=== PATIENT | male | born 1935 | race Caucasian/White ===

== ENCOUNTER → 2016-05-14 | Day surgery (SDC) | payer BC ==
[2016-05-07 15:22] VITALS: Ht 182.9 cm; Wt 95.5 kg
[~2016-05-14] VITALS: Ht 182.9 cm; Wt 95.5 kg
[~2016-05-14] MED LIST: 500ML BSSPLUS 0.5ML EPI1:1000 IRRIG ONE; ACETAMINOPHEN 325 MG TAB PO PRN; ASPI81TA28 PO; ATOR-54 PO; ATROPINE SULFATE 0.1 MG/ML 5ML SYR IV PRN; ATROPINE SULFATE 1% OP OINT PER APPLICATION CHARGE ONE; BSS FLUSH ONE; BUPIVACAINE HCL 0.75% 10 ML AMP/VIAL ONE; CEFAZOLIN SOD 1 GM VIAL ONE; DEXAMETHASONE SOD INJ 4 MG/ML VIAL ONE; EpHEDrine SULFATE INJ 50 MG/ML AMP IV PRN; EpINEphrine INJ 1MG/ML AMP 1 MG/ML AMP ONE; FENTANYL CITRATE INJ 50 MCG/1 ML 2 ML VIAL IV PRN; FLM4 PO; GLC500 PO; GLIM2TAB2 PO; GLUC10007 PO; HYALURONIDASE HUMAN 150 UNIT/ML INJ ONE; INDOCYANINE GREEN 25 MG/10 ML ONE; LACTATED RINGER'S 1000ML 500 ML IV SCH; LIDOCAINE HCL 2% 2 ML VIAL (20MG/ML) ONE; LIDOCAINE MPF 4% INJ INJ ONE; LISI20TA3 PO; METO50TA16 PO; NEOMYCIN/POLYMYX/DEXAMETH OP OINT PER APP CHARGE ONE; OCUCOAT 1 ML SOLN IO ONE; OMEG10007 PO; ONDANSETRON INJ 2 MG/ML 2 ML VIAL IV PRN; PROPARACAINE 0.5% OP SOLN PER DROP CHARGE OPR SCH; PROPOFOL IV EMULSION 10 MG/ML 20 ML VIAL IV ONE; PYRI500T3 PO; SITA1TAB27 PO; TIMOLOL MALEATE 0.5% OP SOLN PER DROP CHARGE ONE; TRAM-10 PO; TRIAMCINOLONE ACETONIDE OPHTH 40 MG/ML VIAL STERILE IO ONE
[2016-05-14] MEDS: PHENYLEPHRINE HCL 2.5% OP SOLN PER DROP CHARGE OPR SCH ×2 (06:38→06:43)
[2016-05-14] MEDS: TROPICAMIDE 1% OP SOLN PER DROP CHARGE OPR SCH ×2 (06:39→06:44)
--- NOTE | 2016-05-14 07:03 | History & Physical Bridge - [place] ---
H&P Re-Evaluation Bridge Note: Pt has macular pucker right eye and is here for vitrectomy of the right eye. I have examined the patient, reviewed the History & Physical and in the interval since the performance of the History & Physical I have noted the following changes of clinical significance: No changes noted
--- NOTE | 2016-05-14 08:05 | [facility] Operative Report ---
Operative Report Date of Service May 14, 2016. Operative Report PREOPERATIVE DIAGNOSIS: Epiretinal membrane, right eye. ICD10: H35.371 POSTOPERATIVE DIAGNOSIS: same. PROCEDURE: 1. Pars plana vitrectomy, 23 gauge. 2. Membrane peeling of the internal limiting membrane and overlying epiretinal membrane. 3. Injection of Triescence 2mg. All to the right eye. CPT CODE: 46008 SURGEON: Jose Luis Maya D.O. COMPLICATIONS: None. ESTIMATED BLOOD LOSS: None. SPECIMENS: None. ANESTHESIA: Retrobulbar block and MAC. INDICATIONS FOR PROCEDURE: The patient has an epiretinal membrane that is visually significant. Vitrectomy surgery is indicated to decrease risk of vision loss and potentially improve vision. CONSENT: The risks, benefits and alternatives were discussed with the patient including but not limited to decreased visual acuity, failure to achieve desired results, loss of the eye, infection, pain, glaucoma, lens changes, retinal tears, retinal detachment, the need for more procedures, drooping of the eyelid, blindness, and double vision. The patient is aware of risks and consents to the surgery. Consent is signed and on the chart. OPERATION AND FINDINGS: The patient was brought to the operating room where the patient was identified by name, date, and medical record number. The surgical site was confirmed with the informed written consent. The patient was sedated by the anesthesiology team after which a 50:50 mixture of 4% lidocaine and 0.75% bupivacaine with hyaluronidase was administered in a standard retrobulbar fashion. A total of 4 ml was administered without difficulty. The patient was then prepped and draped in the usual sterile manner for retinal surgery. A wire lid speculum was placed and an Leonid 23-gauge trocar cannula system was employed. The inferior temporal trocar cannula was first placed in an angled fashion 3.75mm posterior to the surgical limbus and the infusion cannula was inserted into this cannula after which the intravitreal position was verified prior to turning the infusion on. Two more trocar cannulas were then inserted in an angled fashion, one in the superior temporal, and one in the superior nasal quadrant both 3.75mm posterior to the surgical limbus. A light pipe and vitrector were then introduced into the eye and the BIOM wide angle viewing system was brought into place. Standard core vitrectomy was performed the vitreous was insured to be totally detached from the posterior pole with the aid of the vitrector. Next 0.05ml of indocyanine green was placed over the macular surface to stain the internal limiting membrane. This was washed from the eye after 10 seconds. At this point a flat contact lens was placed on the surface of the eye and a flex scraper and ILM forceps were used to gently peel the internal limiting membrane and overlying epiretinal membrane off of the macular surface without difficulty. At this point scleral depression was performed for 360 degrees and no retinal tears or detachments were noted. The trocar cannulas were then removed and found to be water tight. The intraocular pressure was found to be within normal limits by palpation and subconjunctival injections of Kefzol and dexamethasone were administered inferiorly and superiorly. The wire lid speculum was removed. Maxitrol was applied to the surface of the eye. A light patch and shield were taped over the surface of the eye and the patient left the Operating Room in stable condition having tolerated the procedure well. DISPOSITION: The patient has an appointment the following morning in the Ophthalmology Clinic. The patient is to call immediately if there are any problems overnight. I attest to the content of the Intraoperative Record and any orders documented therein. Any exceptions are noted below.
--- NOTE | 2016-05-14 08:06 | Discharge Instructions-SurgCtr ---
Discharge Instructions Date of Service May 14, 2016. Visit Reason for Visit: Right Eye Epiretinal Membrane Discharge Discharge Diagnosis / Problem: same Discharge Goals Goal(s): Improve function Activity Recommendations Activity Limitations: per Instructions/Follow-up section Anesthesia . Post Anesthesia Instructions: If you have had General Anesthesia or IV Sedation: * Do not drive today. * Resume driving when surgeon permits. * Do not make important decisions or sign legal documents today. * Call surgeon for: 1. Temperature elevations greater than 101 degrees F. 2. Uncontrollable pain. 3. Excessive bleeding. 4. Persistent nausea and vomiting. 5. Medication intolerance (nausea, vomiting or rash). * For nausea and vomiting use only clear liquids such as: tea, soda, bouillon until nausea subsides, then gradually increase diet as tolerated. * If you have any concerns or questions, call your surgeon's office. If physician is unavailable and it is an emergency, call 911 or go to the nearest emergency room. . Instructions / Follow-Up Instructions / Follow-Up * May take Tylenol if needed for discomfort. * Do NOT remove eye shield. * NO straining, heavy lifting (>15 pounds) or bending below waist. * Avoid getting water or soap directly into operative eye. * Do NOT rub eye. If you experience increasing eye pain not relieved by medication, please contact us immediately at [phone]. If you are unable to reach someone at the above number, call [phone] and ask to speak with the EYE DOCTOR LIVESTOCK INSPECTOR. Inform them that you are a Dr. Maya patient who had recent surgery. Diet Recommendations Home Diet: resume previous diet Procedures Procedures Performed: Right Eye 23 Gauge Vitrectomy Pending Studies Studies pending at discharge: no Medical Emergencies . Who to Call and When: Medical Emergencies: If at any time you feel your situation is an emergency, please call 911 immediately. . Non-Emergent Contact Non-Emergency issues call your: Environmental Emergencies Planner . . "Provider Documentation" section prepared by Jose Luis Maya.
[2016-05-14 08:07] VITALS: TEMP 36.5
--- NOTE | 2016-05-14 08:17 | Anesthesiology Progress Note ---
Anesthesia Post Op Note Date & Time May 14, 2016 at 08:17 Vital Signs Pain Intensity: 0 Vital Signs Past 12 Hours Date Time Temp Pulse Resp B/P Pulse Ox O2 Delivery O2 Flow Rate FiO2 05/14/16 08:07 36.5 54 18 161/90 96 Room Air 05/14/16 06:32 36.8 54 16 146/96 95 Room Air Notes Mental Status: alert / awake / arousable, participated in evaluation Pt Amnestic to Procedure: Yes Nausea / Vomiting: adequately controlled Pain: adequately controlled Airway Patency, RR, SpO2: stable & adequate BP & HR: stable & adequate Hydration State: stable & adequate Anesthetic Complications: no major complications apparent
[2016-05-14 08:35] VITALS: BP 165/84; PULSE 52; O2SAT 95
== END | disposition home or self-care (01) ==
LOC: X.SURG 06:18
PROVIDERS: ATTEND Ophthalmology
DX: H35.371 Puckering of macula, right eye (principal); E11.9 Type 2 diabetes mellitus without complications; I10 Essential (primary) hypertension; I25.10 Atherosclerotic heart disease of native coronary artery without angina pectoris; M19.90 Unspecified osteoarthritis, unspecified site; E78.5 Hyperlipidemia, unspecified; G47.33 Obstructive sleep apnea (adult) (pediatric); Z90.89 Acquired absence of other organs; Z98.890 Other specified postprocedural states; Z79.82 Long term (current) use of aspirin; Z68.28 Body mass index [BMI] 28.0-28.9, adult

== ENCOUNTER → 2016-05-24 | Outpatient (CLI) | payer BC ==
[~2016-05-24] MED LIST changes: -500ML BSSPLUS 0.5ML EPI1:1000 IRRIG ONE; -ACETAMINOPHEN 325 MG TAB PO PRN; -ATROPINE SULFATE 0.1 MG/ML 5ML SYR IV PRN; -ATROPINE SULFATE 1% OP OINT PER APPLICATION CHARGE ONE; -BSS FLUSH ONE; -BUPIVACAINE HCL 0.75% 10 ML AMP/VIAL ONE; -CEFAZOLIN SOD 1 GM VIAL ONE; -DEXAMETHASONE SOD INJ 4 MG/ML VIAL ONE; -EpHEDrine SULFATE INJ 50 MG/ML AMP IV PRN; -EpINEphrine INJ 1MG/ML AMP 1 MG/ML AMP ONE; -FENTANYL CITRATE INJ 50 MCG/1 ML 2 ML VIAL IV PRN; -HYALURONIDASE HUMAN 150 UNIT/ML INJ ONE; -INDOCYANINE GREEN 25 MG/10 ML ONE; -LACTATED RINGER'S 1000ML 500 ML IV SCH; -LIDOCAINE HCL 2% 2 ML VIAL (20MG/ML) ONE; -LIDOCAINE MPF 4% INJ INJ ONE; -NEOMYCIN/POLYMYX/DEXAMETH OP OINT PER APP CHARGE ONE; -OCUCOAT 1 ML SOLN IO ONE; -ONDANSETRON INJ 2 MG/ML 2 ML VIAL IV PRN; -PROPARACAINE 0.5% OP SOLN PER DROP CHARGE OPR SCH; -PROPOFOL IV EMULSION 10 MG/ML 20 ML VIAL IV ONE; -TIMOLOL MALEATE 0.5% OP SOLN PER DROP CHARGE ONE; -TRIAMCINOLONE ACETONIDE OPHTH 40 MG/ML VIAL STERILE IO ONE
[2016-05-24 10:56] LABS: ALT/SGPT 30 U/L (12-78); BLOOD UREA NITROGEN 20 mg/dl (7-18); BUN/CREATININE RATIO 21.5 (10-20); CALCIUM 9.1 mg/dl (8.5-10.1); CARBON DIOXIDE 29 mmol/L (21-32); CHLORIDE 106 mmol/L (98-107); CREATININE 0.92 mg/dl (0.60-1.40); GLUCOSE 142 mg/dl (70-99); POTASSIUM 4.3 mmol/L (3.5-5.1); SODIUM 142 mmol/L (136-145)
[2016-05-24 10:58] LABS: ALB/GLOB RATIO 1.1 (0.9-2); ALKALINE PHOSPHATASE 118 U/L (45-117); AST/SGOT 18 U/L (15-37)
[2016-05-24 11:53] LABS: ESTIMATED AVERAGE GLUCOSE 154 mg/dl; HA1C FLAG Normal (Normal)
== END | disposition home or self-care (01) ==
LOC: C.LABBC 07:40
PROVIDERS: ATTEND Physician Assistant
DX: E11.9 Type 2 diabetes mellitus without complications (principal)

== ENCOUNTER → 2017-04-01 | Outpatient (CLI) | payer BC | END | disposition home or self-care (01) | LOC: C.LABSPEC 16:59 | PROVIDERS: ATTEND Urology | DX: Z00.00 Encounter for general adult medical examination without abnormal findings (principal); L57.0 Actinic keratosis; E11.9 Type 2 diabetes mellitus without complications; E78.5 Hyperlipidemia, unspecified; I25.10 Atherosclerotic heart disease of native coronary artery without angina pectoris; N35.9 Urethral stricture, unspecified; N40.0 Benign prostatic hyperplasia without lower urinary tract symptoms; H35.379 Puckering of macula, unspecified eye; N39.0 Urinary tract infection, site not specified ==

== ENCOUNTER → 2017-04-08 | Outpatient (CLI) | payer BC ==
[~2017-04-08] MED LIST changes: +GLC/500 PO; +PYRI100T4 PO
--- NOTE | 2017-04-08 16:09 | DIAGNOSTIC IMAGING REPORT ---
CHEST 2 VIEWS ROUTINE CLINICAL HISTORY: URETHRAL STRICTURE preoperative evaluation COMPARISON STUDY: 12/11/2012 FINDINGS: Mild stable cardiomegaly. Mild atelectatic change right base. Lungs otherwise appear clear. Prior left shoulder arthroplasty. IMPRESSION: Mild right basilar atelectasis. Mild stable cardiomegaly. The above report was generated using voice recognition software. It may contain grammatical, syntax or spelling errors. Electronically signed by: Surendra Bryant M.D. 04/08/2017 4:08 PM Dictated Date/Time: 04/08/2017 4:06 PM
[2017-04-08 16:41] LABS: BASO % 0.5 %; BASO ABS # 0.04 K/uL (0-0.2); EOS % 1.2 %; HEMATOCRIT 42.4 % (42-52); HEMOGLOBIN 14.5 g/dL (14.0-18.0); IG# 0.01 K/uL (0.00-0.02); LYMPH % 37.5 %; LYMPH ABS # 3.21 K/uL (1.2-3.4); MEAN CELL VOLUME 93.4 fL (80-100); MEAN CORPUSCULAR HEMOGLOBIN 31.9 pg (25-34); MEAN CORPUSCULAR HGB CONC 34.2 g/dl (32-36); MEAN PLATELET VOLUME 9.6 fL (7.4-10.4); MONO % 7.2 %; MONO ABS # 0.62 K/uL (0.11-0.59); NEUT % 53.5 %; NEUT ABS # 4.59 K/uL (1.4-6.5); PLATELET COUNT 207 K/uL (130-400); RED CELL DISTRIBUTION WIDTH CV 13.4 % (11.5-14.5); RED CELL DISTRIBUTION WIDTH SD 45.7 fL (36.4-46.3); WHITE BLOOD COUNT 8.57 K/uL (4.8-10.8)
[2017-04-08 17:16] LABS: BLOOD UREA NITROGEN 19 mg/dl (7-18); CALCIUM 9.1 mg/dl (8.5-10.1); CARBON DIOXIDE 27 mmol/L (21-32); CREATININE 0.83 mg/dl (0.60-1.40); GLUCOSE 180 mg/dl (70-99); POTASSIUM 3.9 mmol/L (3.5-5.1); SODIUM 139 mmol/L (136-145)
== END | disposition home or self-care (01) ==
LOC: C.RAD 15:26
PROVIDERS: ATTEND Urology
DX: N35.9 Urethral stricture, unspecified (principal)

== ENCOUNTER 2017-04-15 06:32 | Day surgery (SDC) | payer BC ==
[2017-04-11 08:39] VITALS: BMI 28.0
[~2017-04-15] VITALS: Ht 182.9 cm; Wt 95.4 kg
[~2017-04-15 06:32] MED LIST changes: +CIPROFLOXACIN / D5W 400 MG IV SCH; -GLC500 PO; +LACTATED RINGER'S 1000ML 1,000 ML IV SCH; -PYRI500T3 PO
[2017-04-15 06:47] VITALS: BP 149/84; PULSE 52; TEMP 36.6; O2SAT 95; Ht 182.9 cm; Wt 95.4 kg
--- NOTE | 2017-04-15 08:11 | History & Physical Bridge Note ---
H&P Re-Evaluation Bridge Note: I have examined the patient, reviewed the History & Physical and in the interval since the performance of the History & Physical I have noted the following changes of clinical significance: No changes noted
[2017-04-15] MEDS ORDERED: ONDANSETRON INJ 2 MG/ML 2 ML VIAL IV PRN ×2 (08:15→09:00)
[2017-04-15] MEDS ORDERED: EpHEDrine SULFATE INJ 50 MG/ML AMP IV PRN ×2 (08:15→09:00)
[2017-04-15] MEDS ORDERED: FENTANYL CITRATE INJ 50 MCG/1 ML 2 ML VIAL IV PRN ×2 (08:15→09:00)
[2017-04-15] MEDS ORDERED: ATROPINE SULFATE 0.1 MG/ML 5ML SYR IV PRN ×2 (08:15→09:00)
[2017-04-15] MEDS ORDERED: PROMETHAZINE HCL INJ 6.25 MG in SODIUM CHLORIDE 0.9% 50ML 50 ML IV PRN ×2 (08:15→09:00)
[2017-04-15] MEDS ORDERED: MIDAZOLAM HCL 1 MG/ML 2ML VIAL ONE (08:28)
[2017-04-15] MEDS ORDERED: LIDOCAINE HCL 2% 2 ML VIAL (20MG/ML) ONE (08:28)
[2017-04-15] MEDS ORDERED: FENTANYL CITRATE INJ 50 MCG/1 ML 2 ML VIAL ONE (08:28)
[2017-04-15] MEDS ORDERED: SODIUM CHLORIDE 0.9% INJ 10 ML VIAL ONE (08:28)
[2017-04-15] MEDS ORDERED: PROPOFOL IV EMULSION 10 MG/ML 20 ML VIAL IV ONE ×2 (08:28→08:54)
[2017-04-15] MEDS ORDERED: KETAMINE HCL INJ 50 MG/ML 10 ML VIAL ONE (08:29)
[2017-04-15] MEDS ORDERED: ACET-749 PO (08:31)
[2017-04-15] MEDS ORDERED: CIPR-255 PO (08:31)
--- NOTE | 2017-04-15 09:05 | [facility] Operative Report ---
Operative Report Operative Date Apr 15, 2017. Pre-Operative Diagnosis Urethral Stricture, Urinary Retention Post-Operative Diagnosis Urethral Stricture, Urinary Retention Procedure(s) Performed Cystoscopy; Direct Visual Internal Urethotomy Surgeon Dr. Bernstein Optical Coating Technician Surgeon(s) none Estimated Blood Loss 5 ML Findings Scarring throughout his entire urethra, most dense scarring in the bulb Specimens none per surgeon Drains 20 Mongolian councill tip catheter Anesthesia Type MAC Complication(s) none Disposition no Indications Urinary retention;difficulty passing catheter Description of Procedure The patient was identified in the preoperative holding area, appropriate informed consents reviewed and completed and he was transported to the operating suite. Upon arrival he received appropriate preoperative antibiotics in the form of ciprofloxacin. Adequate sedation was achieved and he was placed in dorsal lithotomy position where he was sterilely prepped and draped in standard fashion. I began the case by passing a 22 Mongolian cystoscope with 30 lens. Inspection of the urethra revealed stricture disease extending to the tip of the penis. The penile urethra was navigable with the scope despite the stricturing, however the bulb penis was completely occluded secondary to scarring and stricturing. I was able to guidewire through the very small lumen that remained, but unable to pass the scope. I then exchanged the cystoscope for the visual urethrotome and utilizing a serrated blade, I was able to make a dorsal incision of the urethral strictures in the bulb. I worked through these sequentially identifying 3 distinct areas of narrowing. Sphincter appear to be intact immediately posterior to these, prostate was moderately enlarged without significant obstruction. Inspection of the bladder revealed healthy appearing bladder mucosa with some debris in the dependent portion of the bladder consistent with urinary retention. I irrigated this debris out of the bladder before carefully exiting the bladder with the scope inspecting the previously incised strictures. The urethral lumen appears to be widely patent following the incision. A 20 Mong[place]ian [place] tip catheter was placed over a safety wire. The case was subsequently concluded and the patient taken to the PACU in stable condition I attest to the content of the Intraoperative Record and any orders documented therein. Any exceptions are noted below.
[2017-04-15] MEDS ORDERED: SODIUM CHLORIDE 0.9% 1000ML 1,000 ML IV SCH (09:11)
--- NOTE | 2017-04-15 09:11 | Discharge Instructions ---
Discharge Instructions Date of Service Apr 15, 2017. Admission Reason for Admission: Urethral Stricture Discharge Discharge Diagnosis / Problem: urethral stricture Discharge Goals Goal(s): Decrease discomfort, Improve function, Increase independence, Improve disease control Activity Recommendations Activity Limitations: resume your previous activity Lifting Limitations: none Exercise/Sports Limitations: none May Resume Sexual Activity: when tolerated Shower/Bathe: no limitations Driving or Machine Use: resume 1 day after discharge . Instructions / Follow-Up Instructions / Follow-Up Please come to Dr. Bernstein's office on April 19 at 9:40 to have your catheter removed. Current Hospital Diet Patient's current hospital diet: Discharge Diet Recommended Diet: Regular Diet Procedures Procedures Performed: Cystoscopy; Direct Visual Internal Urethotomy Pending Studies Studies pending at discharge: no Medical Emergencies . Who to Call and When: Medical Emergencies: If at any time you feel your situation is an emergency, please call 911 immediately. . Non-Emergent Contact Non-Emergency issues call your: Urologist Call Non-Emergent contact if: you have a fever, temperature is above 101.5, your pain is not controlled, your pain is worsening . . "Provider Documentation" section prepared by Darius Morrell. . VTE Core Measure Inpt VTE Proph given/why not?: Treatment not indicated [place] Drug Monitoring Program Search Results: patient reviewed within database, no issues identified ( chronic tramadol rx)
[2017-04-15] MEDS ORDERED: ACETAMINOPHEN 325 MG TAB PO PRN (09:15)
[2017-04-15] MEDS ORDERED: OXYCODONE/ACETAMINOPHEN 5-325 TAB PO PRN ×2 (09:15)
--- NOTE | 2017-04-15 09:40 | Anesthesiology Progress Note ---
Anesthesia Post Op Note Date & Time Apr 15, 2017 at 09:40 Vital Signs Pain Intensity: 0 Vital Signs Past 12 Hours Date Time Temp Pulse Resp B/P (MAP) Pulse Ox O2 Delivery O2 Flow Rate FiO2 04/15/17 09:37 50 16 04/15/17 09:37 50 16 94 04/15/17 09:36 146/82 04/15/17 09:32 48 14 04/15/17 09:32 48 14 94 04/15/17 09:31 36.2 48 17 133/76 (90) 97 Room Air Oxymask 04/15/17 09:31 140/80 04/15/17 09:27 49 14 97 04/15/17 09:27 49 14 04/15/17 09:26 133/76 04/15/17 09:22 45 7 97 04/15/17 09:22 45 7 04/15/17 09:21 44 8 97 04/15/17 09:21 45 8 04/15/17 09:16 46 7 04/15/17 09:16 46 7 112/63 97 04/15/17 09:11 47 6 04/15/17 09:11 48 6 94/60 97 04/15/17 09:09 96/57 04/15/17 09:07 84/56 04/15/17 09:06 36.5 49 16 96/57 (67) 97 Oxymask 10 04/15/17 09:06 51 04/15/17 09:06 51 96 04/15/17 06:47 36.6 52 20 149/84 (105) 95 Room Air Notes Mental Status: alert / awake / arousable, participated in evaluation Pt Amnestic to Procedure: Yes Nausea / Vomiting: adequately controlled Pain: adequately controlled Airway Patency, RR, SpO2: stable & adequate BP & HR: stable & adequate Hydration State: stable & adequate Anesthetic Complications: no major complications apparent
[2017-04-15 09:45] VITALS: BP 168/91; PULSE 50; TEMP 36.4; O2SAT 94
[2017-04-15 10:21] VITALS: BP 173/88; PULSE 52; O2SAT 94
[2017-04-15 10:45] VITALS: BP 173/85; PULSE 50; TEMP 36.5; O2SAT 94
== END 2017-04-15 10:32 | disposition home or self-care (01) ==
LOC: C.ACU 06:32
PROVIDERS: ATTEND Urology
DX: N35.9 Urethral stricture, unspecified (principal); N39.0 Urinary tract infection, site not specified; N40.0 Benign prostatic hyperplasia without lower urinary tract symptoms; I25.10 Atherosclerotic heart disease of native coronary artery without angina pectoris; E11.9 Type 2 diabetes mellitus without complications; E78.5 Hyperlipidemia, unspecified; I10 Essential (primary) hypertension; G47.33 Obstructive sleep apnea (adult) (pediatric); Z90.89 Acquired absence of other organs; Z82.49 Family history of ischemic heart disease and other diseases of the circulatory system; Z79.84 Long term (current) use of oral hypoglycemic drugs; Z79.82 Long term (current) use of aspirin

== ENCOUNTER → 2017-05-23 | Outpatient (CLI) | payer BC ==
[~2017-05-23] MED LIST changes: +ACET-749 PO; +CIPR-255 PO; -CIPROFLOXACIN / D5W 400 MG IV SCH; -LACTATED RINGER'S 1000ML 1,000 ML IV SCH
[2017-05-23 14:13] LABS: HEMOGLOBIN A1C 7.2 % (4.5-5.6)
[2017-05-23 14:17] LABS: BLOOD UREA NITROGEN 25 mg/dl (7-18); CALCIUM 9.2 mg/dl (8.5-10.1); CARBON DIOXIDE 26 mmol/L (21-32); CREATININE 0.89 mg/dl (0.60-1.40); GLUCOSE 138 mg/dl (70-99); POTASSIUM 4.5 mmol/L (3.5-5.1); SODIUM 138 mmol/L (136-145)
== END | disposition home or self-care (01) ==
LOC: C.LABBC 11:05
PROVIDERS: ATTEND Internal Medicine Geriatric Medicine
DX: E11.9 Type 2 diabetes mellitus without complications (principal); I10 Essential (primary) hypertension

== ENCOUNTER → 2017-10-02 | Outpatient (CLI) | payer BC ==
[~2017-10-02] MED LIST changes: -ACET-749 PO; +ACET300T3 PO
== END | disposition home or self-care (01) ==
LOC: C.LABSPEC 17:43
PROVIDERS: ATTEND Urology
DX: Z00.00 Encounter for general adult medical examination without abnormal findings (principal); L57.0 Actinic keratosis; I25.10 Atherosclerotic heart disease of native coronary artery without angina pectoris; N40.0 Benign prostatic hyperplasia without lower urinary tract symptoms; E11.9 Type 2 diabetes mellitus without complications; H35.379 Puckering of macula, unspecified eye; E78.5 Hyperlipidemia, unspecified; I10 Essential (primary) hypertension; N35.9 Urethral stricture, unspecified

== ENCOUNTER 2024-10-08 15:33 | Inpatient (IN) ==
[2024-10-08 16:55] LABS: Hematocrit (blood only) 39.7 % (42.0-52.0); Hemoglobin 13.5 g/dl (14.0-18.0); Mean Corpuscular Hemoglobin 31.4 pg (25.0-34.0); Mean Corpuscular Volume 92.3 fL (80.0-100.0); Platelet Count 238 K/uL (130-400); RDW Standard Deviation 43.5 fL (36.4-46.3); Red Blood Count 4.30 M/uL (4.70-6.10); White Blood Count 9.64 K/ul (4.8-10.8)
--- NOTE | 2024-10-08 16:55 | CT Scan Report ---
Technique: Axial computed tomography images were obtained of the brain without intravenous contrast. Comparison is made to the prior CT dated 09/05/2024 Findings: There is unchanged cerebral atrophy, within expected limits for the patient's age. Areas of decreased attenuation are seen within the periventricular white matter, likely representing chronic small vessel ischemic disease. There is no definite sign of acute or old infarction. No intracranial hemorrhage is evident. No definite mass lesion is seen on this noncontrast examination. There is no midline shift or other form of herniation. No hydrocephalus is seen. No fracture is identified. There is frontal and ethmoid sinus mucosal thickening. There is a left maxillary sinus mucous retention cyst. The mastoid air cells appear clear. Impression: 1. Cerebral atrophy and chronic small vessel ischemic disease 2. Chronic sinusitis Electronically signed by Aman Fields 10-08-2024 4:54 PM
[2024-10-08 17:14] LABS: Alanine Aminotransferase 14 U/L (7-52); Albumin Globulin Ratio 1.5 (0.9-2); Alkaline Phosphatase 126 U/L (34-104); Anion Gap 5 (3-11); Bilirubin,Total 0.6 mg/dl (0.2-1.0); Blood Urea Nitrogen 19 mg/dl (6-23); Calcium 9.3 mg/dl (8.6-10.3); Carbon Dioxide 31 mmol/L (21-32); Chloride 95 mmol/L (98-107); Globulin 2.8 gm/dl (2.5-4.0); Glucose 282 mg/dl (70-99(Fasting)); Magnesium 1.9 mg/dl (1.7-2.4); Potassium 4.4 mmol/L (3.5-5.1); Sodium 131 mmol/L (136-145); Total Protein 7.0 gm/dl (6.0-8.3)
--- NOTE | 2024-10-08 17:42 | XRay Report ---
Chest radiograph, one view History: Vertigo Comparison: 09/05/2024 Findings: Single AP view of the chest performed. No focal consolidation or pleural effusion. No pneumothorax. The cardiomediastinal silhouette is within normal limits. Normal pulmonary vascularity. No evidence for lymphadenopathy. No visualized bony or soft tissue abnormality. Left shoulder arthroplasty. Impression: Normal chest radiograph Electronically signed by Jose Luis Romero 10-08-2024 5:40 PM
--- NOTE | 2024-10-08 18:01 | Emergency Department Note ---
Impression & Plan Vertigo, Cerebrovascular accident (CVA) of left thalamus, Pseudohyponatremia, Acute hyperglycemia, Chronic anemia, Ambulatory dysfunction, Carotid artery stenosis ED Provider Note NAME: ELOY GALEANO AGE: 89 SEX: M : 1935 ARRIVES VIA: Walk-In INFORMANT: Patient, daughters ED PROVIDER(S): Josh Manzano DO CHIEF COMPLAINT: vertigo HPI: This is a 89-year-old male with the PMHx of IDDM2 c/b diabetic neuropathy, pAfib s/p watchman procedure, CAD (non-occlusive), HLD, HTN, FABIÁN, BPH and recent UTI treatment presenting to [facility] for further evaluation of continued vertiginous symptoms. Patient is accompanied by his daughters who provide additional history. The patient reports ongoing vertiginous symptoms over the past 2 months. Patient was evaluated recently in the emergency department in August with stroke workup that was negative. Patient was discharged on meclizine. He has also been following up with his primary care physician as well as physical therapy. He is presumably diagnosed with BPPV. Patient was recently treated for a UTI which she has since completed. He intermittently continues to have urinary symptoms. He states the vertiginous symptoms are severe. He notes that he has trouble walking and issues with balance. The symptoms occur throughout the day. The symptoms have become so severe that he has episodes where he is crawling in the house. The patient lives alone. He recently lost his in the past year. They deny fever or chills. No cough or congestion. Denies chest pain or palpitations. No shortness of breath. They deny abdominal pain, nausea and vomiting. No recent changes in bowel movements. Patient denies recent changes in medications or OTC supplements. Patient offers no other complaints, today. ADDITIONAL HISTORY OBTAINED: Per HPI Chronic Medical/Social Conditions Affecting Care: Per HPI PAST MEDICAL HISTORY: See Below PAST SURGICAL HISTORY: See Below FAMILY HISTORY: See Below SOCIAL HISTORY: See Below HOME MEDICATIONS: See Below ALLERGIES: See Below VITALS: See Below PHYSICAL EXAMINATION: GENERAL: Sitting up in bed, alert, well appearing, well nourished, no distress, non-toxic EYE EXAM: normal conjunctiva. PERRL and EOM's grossly intact. OROPHARYNX: no exudate, no erythema, lips, buccal mucosa, and tongue normal and mucous membranes are moist NECK: supple, no nuchal rigidity, no adenopathy, non-tender LUNGS: Clear to auscultation. Normal chest wall mechanics HEART: no murmurs, regular rate, regular rhythm ABDOMEN: abdomen soft, non-tender, no masses, no rebound or guarding. BACK: Back is symmetrical on inspection and there is no deformity, no midline tenderness, no CVA tenderness. SKIN: no rashes and no bruising UPPER EXTREMITIES: upper extremities are grossly normal. LOWER EXTREMITIES: No pitting edema. NEURO EXAM: Normal sensorium, GCS 15, normal speech, no gross weakness of arms, no gross weakness of legs. No drift. Finger to nose intact. Gross sensation intact. NIHSS 0. Noted to have ataxic gait with ambulation. MEDICAL DECISION MAKING: Differential diagnoses includes but not limited to peripheral vertigo, central vertigo, CVA, posterior circulation stroke, electrolyte derangements, UTI, ACS, dysrhythmia, pneumonia In summary, this is a 89 year old male who presented with vertiginous symptoms. Differential as above. Nursing notes and pertinent past medical records reviewed. Vital signs reviewed and the patient is Intermittently bradycardic but otherwise afebrile and hemodynamically stable. History and presentation revealed prior evaluation in August for similar symptoms with reassuring workup. It was thought that the patient had peripheral vertigo and he was discharged on a course of meclizine. Has been utilizing physical therapy as well as meclizine without any improvement. Symptoms continue to worsen. He lives alone and he is a significant fall risk given ataxic gait. Physical examination revealed as above. As a result of my initial evaluation, we will plan to repeat lab work today. Plan for CT head. We will also obtain an MRI given ongoing symptoms and concerns for possible posterior circulation stroke. Diagnostics interpreted by me include EKG and cardiac monitoring as listed below: -Cardiac Monitoring: An order was placed for continuous cardiac monitoring. The monitor shows a rate of 50-70s with regular rhythm. -ECG: EKG independently interpreted by me reveals sinus bradycardia at a rate of 55 bpm. There were no significant ST segment changes to suggest STEMI. Intervals are otherwise within normal limits. I compared to prior EKGs and this is similar. Patient completed laboratory studies and imaging. Results independently interpreted by me are mild anemia that is comparable to prior and appears chronic. Patient does not have any significant electrolyte derangements. He does have pseudohyponatremia in the setting of hyperglycemia. No significant kidney dysfunction. Alkaline phosphatase is mildly elevated but otherwise LFTs and lipase are normal. Urinalysis showed some pyuria and leukocyte esterase but no bacteriuria. There is squamous cells on this urine sample. The patient was managed with IV fluid resuscitation as well as Valium. Valium significantly improved the patient's symptoms. I did not utilize meclizine as he has been utilizing this at home without any improvement. CXR independently interpreted by me reveals no evidence of focal consolidation to suggest pna. No large pneumothorax or pleural effusion. CTH independently interpreted by me reveals no evidence of ICH. No significant hydrocephalus. No major skull fractures. CTH does not demonstrate findings to suggest an etiology of the patient's symptoms or presentation, today. Patient has had ongoing vertiginous symptoms and difficulty with ADLs despite CTAs that have been negative. Has seen physical therapy as well as utilizing meclizine without improvement. Daughters are significant concern with his safety at home. Will order MRI for further characterization of possible posterior circulation stroke. The patient just had CTAs of the head and neck and do not feel that repeat angiograms are necessary at this time. I have independently reviewed the patient's prior emergency department visit as well as CT imaging that revealed no acute findings besides mild carotid artery stenosis. It was thought that the patient likely had peripheral vertigo and he was discharged on a course of meclizine. Do feel the patient would benefit from admission. Ultimately, the decision was made to admit the patient for persistent vertiginous symptoms with unclear diagnosis and ongoing ambulatory dysfunction. It was recommended to admit this patient at 1930. I discussed the case with the hospitalist service via telephone/Tiger[employer] and they are agreeable to admit the patient to their services. Based on the above, including the patient's age, coexisting illnesses, labs, imaging, and exam findings the decision to treat as an inpatient. I discussed the patient with the hospitalist team who recommended admission to their services. They received the medications, treatments, interventions indicated above and their condition remained guarded. I discussed my findings with the patient and their family and they understand and agree with the treatment plan. All patient / family questions were answered to their satisfaction. I received a call from [facility] reporting acute thalamic stroke on the left. Do feel this likely explains the patient's symptoms. I independently reviewed the patient's MRI. The patient was discussed with on-call neurology. They recommended dual antiplatelet therapy as well as increasing his low intensity statin to high intensity. Patient will receive further workup as an inpatient. I updated the hospitalist team on these results and plan of care. Consults/Care Managements Discussions: Per MDM ER treatment provided: See above Procedures: None Critical Care: None The chart was completed utilizing [employer] voice recognition software. Grammatical errors, random word insertions, pronoun errors, and incomplete sentences are an occasional consequence of this system due to software limitations, ambient noise, and hardware issues. Any formal questions or concerns about the content, text, or information contained within the body of this dictation should be directly addressed to the physician for clarification. 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) Lumbar spondylosis (Chronic) HTN (hypertension) (Chronic) Medical History Gross hematuria Gynecomastia Epiretinal membrane Urethral stricture Urinary retention Sleep apnea Benign prostate hyperplasia Surgical History Hx of bilateral cataract extraction History of shoulder replacement History of tooth extraction History of cardiac cath (~2011) Hx of urethrotomy Hx of repair of rotator cuff History of prostate biopsy Hx of eye surgery Hx of colonoscopy History of liver biopsy Hx of appendectomy Family History Mother Heart disease Brother Colorectal cancer Grandmother (Maternal) Diabetes Other Family history of diabetes mellitus Denies family history of Ovarian cancer Prostate cancer Myocardial infarction Breast cancer Lung cancer Stroke Social History Smoking Status: Never smoker Second Hand Exposure: No; Do You Dip or Chew Tobacco: No; Hx Alcohol Use: No Hx Substance Use: No Preferred Language: Cymro Communication Ability: Effective Visual Impairment: Limited Hearing Ability: Normal Child Health Associate Required: No Beliefs That Will Affect Care: None marital status: / Current Living Situation: Alone current occupational status: retired How many Children do You have: 3 Feels Safe at Home: Yes Childhood Exposure to Second-Hand Smoke: No Diet: regular caffeine: Yes Dental Care, Regularly: Yes Physical Activity Frequency: Daily Seatbelt Use: always Sunscreen Use: Yes (sometimes) Do you think of yourself as: straight/heterosexual Assistive Devices: Cane and CPAP Allergies Allergies Allergy/AdvReac Type Severity Reaction Status Date / Time empagliflozin AdvReac Intermediate Urinary Verified 09/28/24 09:59 [From Willian] problems Home Meds Home Medications Medication Instructions Recorded Confirmed omega-3s 300 nr-lxl-zsf-other 1 tab PO QAM 12/17/17 09/28/24 evmus5j-afea oil 1,000 mg capsule ([place]-3 Fish Oil) flash glucose scanning reader #1 ea 06/28/20 09/28/24 (FreeStyle Wyatt 2 [place]) flash glucose sensor (FreeStyle #1 ea 06/28/20 09/28/24 Wyatt 2 Sensor kit) vvichsmwruk-gsa-uvzkrortr-vitC 1 cap PO BID 09/30/20 09/28/24 capsule (Glucosamine Complex-MSM capsule) cyanocobalamin (vitamin B-12) 1,000 mcg PO QAM 10/08/22 09/28/24 1,000 mcg tablet (Vitamin B-12) acetaminophen 500 mg tablet 1,000 mg PO BID 04/18/23 09/28/24 Previous Rx's Medication Instructions Recorded pen needle, diabetic 31 gauge x #400 ea 09/20/22 3/16" (BD Ultra-Fine Mini Pen Needle) metformin 500 mg tablet,extended 1,500 mg (3 x 500 mg) PO QPM #270 01/20/24 release 24 hr tabs insulin glargine 100 unit/mL (3 30 unit (0.3 mL) subcut QAM #30 mL 02/24/24 mL) subcutaneous pen (Lantus Solostar U-100 Insulin) insulin lispro 100 unit/mL 10 unit (0.1 mL) subcut TID #30 mL 02/24/24 subcutaneous pen, sensor (Humalog Tempo Pen (U-100) Insulin) tamsulosin 0.4 mg capsule See Rx Instructions .Route 03/23/24 .COMPLEX #90 caps lisinopril 20 1 tab PO QAM #90 tabs 06/04/24 mg-hydrochlorothiazide 25 mg tablet amlodipine 5 mg-valsartan 320 mg 1 tab PO DAILY #90 tabs 06/29/24 tablet insulin lispro 100 unit/mL 10 unit (0.1 mL) subcut TID #30 mL 06/29/24 subcutaneous pen (Humalog KwikPen (U-100) Insulin) clopidogrel 75 mg tablet 75 mg PO DAILY #30 tabs 09/11/24 metoprolol tartrate 50 mg tablet 25 mg (1/2 x 50 mg) PO BID #180 09/11/24 tabs meclizine 25 mg tablet 25 mg PO TID PRN dizziness #20 tabs 10/05/24 aspirin 81 mg tablet,delayed 81 mg PO QAM #30 tabs 10/09/24 release atorvastatin 40 mg tablet 80 mg (2 x 40 mg) PO QAM #60 tabs 10/09/24 cefpodoxime 200 mg tablet 200 mg PO BID #20 tabs 10/09/24 Results & Data (ED) Vital Signs Vital Signs - 24 hr 10/08/24 21:21 10/08/24 21:30 Pulse Rate 66 62 Respiratory Rate 22 16 Blood Pressure 140/80 133/80 Blood Pressure Mean 100 97 Pulse Oximetry 96 96 Laboratory Data 10/09/24 06:33 10/09/24 06:33 Lab Results 10/08/24 10/08/24 Range/Units 17:58 19:12 PT 10.8 (9.0-12.0) Seconds INR 1.0 (0.9-1.1) APTT 28 (21-31) Seconds PTT Ratio 1.0 Urine Color Yellow Urine Appearance Clear (Clear) Urine pH 6.5 (4.5-7.5) Ur Specific [place] 1.013 (1.000-1.030) Urine Protein Negative (Negative) Urine Glucose (UA) Trace H (Negative) Urine Ketones Negative (Negative) Urine Blood Negative (Negative) Urine Nitrite Negative (Negative) Urine Bilirubin Negative (Negative) Urine Urobilinogen Negative (Negative) Ur Leukocyte Esterase 2+ H (Negative) Urine WBC (Auto) >50 H (0-5) /hpf Urine RBC (Auto) 0-2 (0-2) /hpf U Hyaline Cast (Auto) 0-2 (0-2) /lpf U Epithel Cells (Auto) 6-10 H (0-2) /hpf Urine Bacteria (Auto) None Seen (None Seen) Urine Comment Administered Medications Discontinued Medications Aspirin (Aspirin 81 Mg Ectab) [facility] Stop: 11/08/24 08:59 Last Admin: 10/09/24 08:11 Dose: 81 mg Documented By: CFD Atorvastatin Calcium (Atorvastatin 40 Mg Tab) [facility] [place] Stop: 11/08/24 08:59 Last Admin: 10/09/24 08:11 Dose: 80 mg Documented By: CFD Clopidogrel Bisulfate (Clopidogrel Bisulfate 75 Mg Tab) 75 mg PO DAILY [facility] Stop: 11/08/24 08:59 Last Admin: 10/09/24 08:12 Dose: 75 mg Documented By: CFD Diazepam (Diazepam Inj 5 Mg/Ml 2 Ml Carp) 2 mg IV NOW STA Stop: 10/08/24 20:16 Last Admin: 10/08/24 20:29 Dose: 2 mg Documented By: CTK Enoxaparin Sodium (Enoxaparin Inj 40 Mg/0.4 Ml Syr) 40 mg SQ HS JUAN Stop: 11/07/24 23:14 Last Admin: 10/09/24 00:10 Dose: 40 mg Documented By: GDH Gadobutrol (Gadobutrol 65ml Vial) 9.7 ml IV ONCE ONE Stop: 10/08/24 19:59 Last Admin: 10/08/24 19:59 Dose: 9.7 ml Documented By: [facility] Lisinopril/HCTZ (Lisinopril/Hctz 20/25mg 1 Tab) 1 tab PO QAM JUAN Stop: 11/08/24 08:59 Last Admin: 10/09/24 08:12 Dose: 1 tab Documented By: DREW Parenteral Electrolytes (Plasma-Lyte A Ph 7.4) 1,000 mls @ 999 mls/hr IV .Q1H1M ONE Stop: 10/08/24 20:28 Last Infusion: 10/08/24 21:40 Dose: Infused Documented By: Admin: 10/08/24 20:31 Dose: 999 mls/hr Documented By: NAHID Ceftriaxone Sodium (Rocephin) 2,000 mg in 50 mls @ 100 mls/hr IV ONE STA Stop: 10/08/24 23:00 Last Infusion: 10/09/24 01:14 Dose: Infused Documented By: Admin: 10/09/24 00:09 Dose: 100 mls/hr Documented By: CATHLEEN Insulin Aspart (Insulin Aspart Per Unit Charge) 0 units SC ACHS JUAN Stop: 11/08/24 07:29 Last Admin: 10/09/24 12:30 Dose: 7 units Documented By: DREW Co-signed By: HANK Admin: 10/09/24 09:18 Dose: 6 units Documented By: DREW Co-signed By: HANK Insulin Glargine (Lantus Per Unit Charge) 15 units SQ BID JUAN Stop: 11/08/24 08:59 Last Admin: 10/09/24 09:11 Dose: 15 units Documented By: DREW Co-signed By: HNAK Meclizine HCl (Meclizine Hcl 25 Mg Tab) 25 mg PO TID PRN PRN Reason: dizziness Stop: 11/07/24 23:06 Last Admin: 10/09/24 17:02 Dose: 25 mg Documented By: Admin: 10/09/24 11:53 Dose: 25 mg Documented By: DREW Metoprolol Tartrate (Metoprolol Tartrate 25 Mg Tab) 25 mg PO BID JUAN Stop: 11/07/24 23:06 Last Admin: 10/09/24 08:11 Dose: 25 mg Documented By: Admin: 10/09/24 00:10 Dose: 25 mg Documented By: CATHLEEN Tamsulosin HCl (Tamsulosin Hcl 0.4 Mg Cap) 0.4 mg PO QAM JUAN Stop: 11/08/24 08:59 Last Admin: 10/09/24 08:12 Dose: 0.4 mg Documented By: CFD Imaging Data Radiologist's Impression: Chest X-Ray 10/08/24 16:17 Chest radiograph, one view History: Vertigo Comparison: 09/05/2024 Findings: Single AP view of the chest performed. No focal consolidation or pleural effusion. No pneumothorax. The cardiomediastinal silhouette is within normal limits. Normal pulmonary vascularity. No evidence for lymphadenopathy. No visualized bony or soft tissue abnormality. Left shoulder arthroplasty. Impression: Normal chest radiograph Electronically signed by Jose Luis Romero 10-08-2024 5:[address] 10/08/24 16:17 Technique: Axial computed tomography images were obtained of the brain without intravenous contrast. Comparison is made to the prior CT dated 09/05/2024 Findings: There is unchanged cerebral atrophy, within expected limits for the patient's age. Areas of decreased attenuation are seen within the periventricular white matter, likely representing chronic small vessel ischemic disease. There is no definite sign of acute or old infarction. No intracranial hemorrhage is evident. No definite mass lesion is seen on this noncontrast examination. There is no midline shift or other form of herniation. No hydrocephalus is seen. No fracture is identified. There is frontal and ethmoid sinus mucosal thickening. There is a left maxillary sinus mucous retention cyst. The mastoid air cells appear clear. Impression: 1. Cerebral atrophy and chronic small vessel ischemic disease 2. Chronic sinusitis Electronically signed by Aman Fields 10-08-2024 4:54 PM Brain MRI 10/08/24 18:12 CR Exam(s): MRI HEAD W/WO Contrast EXAM: MR Head Without and With Intravenous Contrast CLINICAL HISTORY: Reason for exam: eval for psoterior circ stroke. TECHNIQUE: Magnetic resonance images of the head/brain without and with intravenous contrast in multiple planes. CONTRAST: must be dictated COMPARISON: No relevant prior studies available. FINDINGS: Brain: left T2/FLAIR signal hyperintensity scattered throughout the subcortical and deep white matter consistent with mild ischemic microangiopathy. Acute thalamic lacunar infarct. Age-appropriate cerebral volume loss. No hemorrhage. Ventricles: Unremarkable. No ventriculomegaly. Bones/joints: Unremarkable. No acute fracture. Sinuses: Unremarkable as visualized. No acute sinusitis. Mastoid air cells: Unremarkable as visualized. No mastoid effusion. Orbits: Unremarkable as visualized. IMPRESSION: Acute left thalamic lacunar infarct. Communications: Call Doctor Stroke Electronically signed by: Ho Fu MD 10/08/24 21:36 PM Discharge Plan Visit Data Chief Complaint: Vertigo Stated Complaint: VERTIGO, DIZZINESS ED Provider: Josh Manzano Discharge Problem: Vertigo, Cerebrovascular accident (CVA) of left thalamus, Pseudohyponatremia, Acute hyperglycemia, Chronic anemia, Ambulatory dysfunction, Carotid artery stenosis Patient Disposition: Admitted As Inpatient Condition: Serious Discharge Instructions Interventions: ED Discharge Assessment Last Done: 10/08/24 22:49
[2024-10-08 18:52] LABS: INR 1.0 (0.9-1.1); Partial Thromboplastin Time 28 Seconds (21-31); Prothrombin Time 10.8 Seconds (9.0-12.0)
[2024-10-08 19:33] LABS: Appearance Urine Clear (Clear); Bacteria Urine Automated None Seen (None Seen); Cast Urine Automated 0-2 /lpf (0-2); Glucose Urine UA Trace (Negative); RBC Urine Automated 0-2 /hpf (0-2); WBC Urine Automated >50 /hpf (0-5)
[2024-10-08] MEDS: GADOBUTROL 65ML VIAL IV ONE (19:59)
[2024-10-08] MEDS: PLASMA-LYTE A 1,000 ML IV ONE (20:31)
--- NOTE | 2024-10-08 21:37 | Magnetic Resonance Report ---
Exam(s): MRI HEAD W/WO Contrast EXAM: MR Head Without and With Intravenous Contrast CLINICAL HISTORY: Reason for exam: eval for psoterior circ stroke. TECHNIQUE: Magnetic resonance images of the head/brain without and with intravenous contrast in multiple planes. CONTRAST: must be dictated COMPARISON: No relevant prior studies available. FINDINGS: Brain: left T2/FLAIR signal hyperintensity scattered throughout the subcortical and deep white matter consistent with mild ischemic microangiopathy. Acute thalamic lacunar infarct. Age-appropriate cerebral volume loss. No hemorrhage. Ventricles: Unremarkable. No ventriculomegaly. Bones/joints: Unremarkable. No acute fracture. Sinuses: Unremarkable as visualized. No acute sinusitis. Mastoid air cells: Unremarkable as visualized. No mastoid effusion. Orbits: Unremarkable as visualized. IMPRESSION: Acute left thalamic lacunar infarct. Communications: Call Doctor Stroke Electronically signed by: Ho Fu MD 10/08/24 21:36 PM
--- NOTE | 2024-10-08 22:37 | History & Physical Report ---
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 #Vertigo - in the setting of acute left thalamic lacunar infarct suspect secondary to above Per neurology recommendation: Add ASA 81mg daily, continue Plavix, increase atorvastatin to 80mg daily Neurology consult placed for ongoing recommendations/management For vertiginous symptoms - Valium 2mg q8h PRN, meclizine 25mg TID PRN #BPH w/LUTS, ?UTI Pt does urinate but has PVR and self caths up to 3x daily Has some suprapubic tenderness Will start on ceftriaxone 2g q24h UCx sent - follow results Continue Flomax #HLD Increase atorvastatin to 80mg daily as above #HTN Unclear what medication pt is taking - please clarify Has recent prescription fills for amlodipine-valsartan 5 and lisinopril-HCTZ Will continue lisinopril-HCTZ as this has the most recent fill #Afib s/p watchman procedure Rates well controlled Continue metoprolol #T2DM Hold home metformin Lantus 15U BID Accuchecks ACHS ISS - CF 25, CR 8 FENGI: heart healthy, DM2 Code status: DNR/DNI DVT prophylaxis: Lovenox Disposition: med/tele History of Present Illness Primary Care Provider: DAVE Mohr 89 yo male PMHx T2DM on insulin, diabetic neuropathy, afib s/p watchman procedure, CAD (non-occlusive), HLD, HTN, FABIÁN, BPH w/LUTS admitted with ongoing dizziness for over a month. For the last month the patient has had persistently intermittent dizziness primarily described as room-spinning. The longest period of absence of symptoms he can recall has been a few hours. He was seen in the ER 09/05/24, had CT of the head without acute changes and was discharged on meclizine. He does not feel that the meclizine has been particularly helpful. He has also been attending PT for evaluation and treatment of presumed BPPV without improvement. Over the last few days symptoms have become more persistent and he has not been able to complete his ADLs. He has felt weaker and feels that he may have a UTI as he self caths due to LUTS with urethral stricture and incomplete bladder emptying. Overall he denies recent illness, KAY, SOB, CP, palpations, does describe some suprapubic discomfort. ED Course: CT head: no acute findings - cerebral atrophy and chronic small vessel disease; chronic sinusitis MRI brain: Acute left thalamic infarct ED physician discussed with on-call neurologist - recommend DAPT (pt already on Plavix) and increase statin to high intensity Labs reveal: no leukocytosis, mild hyponatremia, UA suggestive of possible developing UTI without bacteria seen Received Valium 2mg (significantly improved his symptoms); 1L plasmalyte Allergies Allergy/AdvReac Type Severity Reaction Status Date / Time empagliflozin AdvReac Intermediate Urinary Verified 09/28/24 09:59 [From Jardiance] problems Home Medications Medication Instructions Recorded Confirmed Type omega-3s 300 il-imb-ycx-other 1 tab PO QAM 12/17/17 09/28/24 History dbapr4q-gxlc oil 1,000 mg capsule ([place]-3 Fish Oil) flash glucose scanning reader #1 ea 06/28/20 09/28/24 History (FreeStyle Wyatt 2 [place]) flash glucose sensor (FreeStyle #1 ea 06/28/20 09/28/24 History Wyatt 2 Sensor kit) qfbqdcumnmv-flx-ricerwxhb-vitC 1 cap PO BID 09/30/20 09/28/24 History capsule (Glucosamine Complex-MSM capsule) pen needle, diabetic 31 gauge x #400 ea 11/07/21 09/28/24 Rx 3/16" (BD Ultra-Fine Mini Pen Needle) cyanocobalamin (vitamin B-12) 1,000 mcg PO QAM 10/08/22 09/28/24 History 1,000 mcg tablet (Vitamin B-12) acetaminophen 500 mg tablet 1,000 mg PO BID 04/18/23 09/28/24 History metformin 500 mg tablet,extended 1,500 mg (3 x 500 mg) PO QPM #270 01/20/24 09/28/24 Rx release 24 hr tabs insulin glargine 100 unit/mL (3 30 unit (0.3 mL) subcut QAM #30 mL 02/24/24 09/28/24 Rx mL) subcutaneous pen (Lantus Solostar U-100 Insulin) insulin lispro 100 unit/mL 10 unit (0.1 mL) subcut TID #30 mL 02/24/24 09/28/24 Rx subcutaneous pen, sensor (Humalog Tempo Pen (U-100) Insulin) tamsulosin 0.4 mg capsule See Rx Instructions .Route 03/23/24 09/28/24 Rx .COMPLEX #90 caps lisinopril 20 1 tab PO QAM #90 tabs 06/04/24 09/28/24 Rx mg-hydrochlorothiazide 25 mg tablet atorvastatin 20 mg tablet 20 mg PO QPM #90 tabs 06/05/24 09/28/24 Rx amlodipine 5 mg-valsartan 320 mg 1 tab PO DAILY #90 tabs 06/29/24 09/28/24 Rx tablet insulin lispro 100 unit/mL 10 unit (0.1 mL) subcut TID #30 mL 06/29/24 09/28/24 Rx subcutaneous pen (Humalog KwikPen (U-100) Insulin) clopidogrel 75 mg tablet 75 mg PO DAILY #30 tabs 09/11/24 09/28/24 Rx metoprolol tartrate 50 mg tablet 25 mg (1/2 x 50 mg) PO BID #180 09/11/24 09/28/24 Rx tabs ciprofloxacin HCl 500 mg tablet 500 mg PO BID complicated UTI #10 09/28/24 09/28/24 Rx tabs meclizine 25 mg tablet 25 mg PO TID PRN dizziness #20 tabs 10/05/24 Rx Past Med/Surg History Problem List (Updated 10/09/24 @ 03:28 by Horacio Kay DO) 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) Lumbar spondylosis (Chronic) HTN (hypertension) (Chronic) Medical History Gross hematuria Gynecomastia Epiretinal membrane Urethral stricture Urinary retention Sleep apnea Benign prostate hyperplasia Surgical History Hx of bilateral cataract extraction History of shoulder replacement History of tooth extraction History of cardiac cath (~2011) Hx of urethrotomy Hx of repair of rotator cuff History of prostate biopsy Hx of eye surgery Hx of colonoscopy History of liver biopsy Hx of appendectomy Family History Mother Heart disease Brother Colorectal cancer Grandmother (Maternal) Diabetes Other Family history of diabetes mellitus Denies family history of Ovarian cancer Prostate cancer Myocardial infarction Breast cancer Lung cancer Stroke Social History Smoking Status: Never smoker Second Hand Exposure: No; Do You Dip or Chew Tobacco: No; Hx Alcohol Use: No Hx Substance Use: No Preferred Language: Polish Communication Ability: Effective Visual Impairment: Limited Hearing Ability: Normal Rn Hedis Required: No Beliefs That Will Affect Care: None marital status: / Current Living Situation: Alone current occupational status: retired How many Children do You have: 3 Feels Safe at Home: Yes Safety Concerns: Feels Safe At This Time Childhood Exposure to Second-Hand Smoke: No Diet: regular caffeine: Yes Dental Care, Regularly: Yes Physical Activity Frequency: Daily Seatbelt Use: always Sunscreen Use: Yes (sometimes) Do you think of yourself as: straight/heterosexual Assistive Devices: Denture - Upper and Hearing Aid - Bilateral Review of Systems Review of Systems: reviewed, per HPI Physical Exam Physical Exam: Constitutional: well-appearing, no acute distress HEENT: NCAT, no conjunctival injection CV: regular rhythm, no murmur appreciated, extremities well-perfused, no LE edema Resp: CTABL, no wheezes/rales/rhonchi appreciated, no increased work of breathing GI: soft, nondistended, mild suprapubic tenderness to palpation, BS normoactive MSK: no gross deformities appreciated Skin: warm, dry, no rash appreciated Neuro: alert, oriented, no focal neurologic deficit appreciated Results & Data Results & Data Vital Signs (Past 12 Hours) Vital Signs Pulse Pulse Resp BP BP Pulse Ox O2 Del Method 10/08/24 21:30 62 16 133/80 96 10/08/24 21:21 66 22 140/80 96 10/08/24 20:00 67 18 151/93 H 96 Room Air 10/08/24 18:20 58 L 10/08/24 18:00 92 Room Air 10/08/24 18:00 59 L 18 139/69 95 Room Air 10/08/24 16:02 53 L 18 122/69 96 Room Air Code Status & VTE Plan VTE Prophylaxis Plan VTE Prophylaxis will be ordered: Yes Resident Activity Tracking Resident Involvement: Resident Care Provided Care Provided: Adult Hospital Medicine (2) Diabetes mellitus, type 2 Diabetes mellitus halfway insulin use: with halfway use Diabetes mellitus complication status: with neurologic complications Diabetes mellitus complication detail: with polyneuropathy Qualified Code(s): E11.42 - Type 2 diabetes mellitus with diabetic polyneuropathy; Z79.4 - custodial (current) use of insulin (6) HTN (hypertension) Hypertension type: essential hypertension Qualified Code(s): I10 - Essential (primary) hypertension
[2024-10-08] MEDS ORDERED: MELATONIN 3 MG TAB PO PRN (23:07)
[2024-10-08] MEDS ORDERED: ONDANSETRON INJ 2 MG/ML 2 ML VIAL IV PRN (23:07)
[2024-10-08] MEDS ORDERED: ALUMINUM/MAGNESIUM SUSP 30 ML UDC PO PRN (23:07)
[2024-10-08] MEDS ORDERED: POLYETHYLENE (MIRALAX) 17 GM PACK PO PRN (23:07)
[2024-10-08] MEDS ORDERED: MAGNESIUM HYDROXIDE SUSP 30 ML UDC PO PRN (23:07)
[2024-10-08] MEDS ORDERED: ACETAMINOPHEN 325 MG TAB PO PRN (23:07)
[2024-10-09] MEDS ORDERED: GLUCAGON FOR INJ 1 MG VIAL SQ PRN (00:07)
[2024-10-09] MEDS ORDERED: CARBOHYDRATES FOR HYPOGLYCEMIA PO PRN (00:07)
[2024-10-09] MEDS ORDERED: DEXTROSE 50% 50 ML SYRINGE IV PRN (00:07)
[2024-10-09] MEDS ORDERED: GLUCOSE 40% GEL 15 GM TUBE PO PRN (00:07)
[2024-10-09] MEDS ORDERED: GLUCOSE 10 TAB/TUBE PO PRN (00:07)
[2024-10-09] MEDS: cefTRIAXone SODIUM 2,000 MG/50 ML BAG IV STA (00:09)
[2024-10-09] MEDS: ENOXAPARIN INJ 40 MG/0.4 ML SYR SQ SCH (00:10)
[2024-10-09] MEDS: METOPROLOL TARTRATE 25 MG TAB PO SCH (00:10)
[2024-10-09 02:59] VITALS: RESP 18
--- NOTE | 2024-10-09 03:06 | Billing Data ---
Date of Service October 09, 2024 Coding Level of Care Code 06666 INT INP/OBS CARE
[2024-10-09 07:32] LABS: Hematocrit (blood only) 37.2 % (42.0-52.0); Hemoglobin 13.0 g/dl (14.0-18.0); Immature Granulocytes # (auto) 0.02 K/uL (0.01-0.20); Immature Granulocytes % (auto) 0.2 %; Mean Corpuscular Hemoglobin 32.3 pg (25.0-34.0); Mean Corpuscular Volume 92.3 fL (80.0-100.0); Platelet Count 224 K/uL (130-400); RDW Standard Deviation 42.8 fL (36.4-46.3); Red Blood Count 4.03 M/uL (4.70-6.10); White Blood Count 9.63 K/ul (4.8-10.8)
[2024-10-09 07:42] VITALS: O2SAT 95
[2024-10-09 07:52] LABS: Alanine Aminotransferase 14.0 U/L (7-52); Albumin Globulin Ratio 1.3 (0.9-2); Alkaline Phosphatase 99.0 U/L (34-104); Anion Gap 6.0 (3-11); Bilirubin,Total 0.6 mg/dl (0.2-1.0); Blood Urea Nitrogen 14.0 mg/dl (6-23); Calcium 8.9 mg/dl (8.6-10.3); Carbon Dioxide 32.0 mmol/L (21-32); Chloride 97.0 mmol/L (98-107); Cholesterol 77.0 mg/dl (0-200); Creatinine Clr Calc Pharmacy 86.8 ml/min; Globulin 2.9 gm/dl (2.5-4.0); Glucose 102.0 mg/dl (70-99(Fasting)); HDL Cholesterol 37.0 mg/dl; Potassium 3.8 mmol/L (3.5-5.1); Sodium 135.0 mmol/L (136-145); Total Protein 6.7 gm/dl (6.0-8.3); Triglycerides 114.0 mg/dl (0-150)
[2024-10-09 07:57] LABS: Hemoglobin A1C 7.2 % (4.5-5.6)
[2024-10-09] MEDS: ATORVASTATIN 40 MG TAB PO SCH (08:11)
[2024-10-09] MEDS: ASPIRIN 81 MG ECTAB PO SCH (08:11)
[2024-10-09] MEDS: TAMSULOSIN HCL 0.4 MG CAP PO SCH (08:12)
[2024-10-09] MEDS: CLOPIDOGREL BISULFATE 75 MG TAB PO SCH (08:12)
[2024-10-09] MEDS: LISINOPRIL/HCTZ 20/25MG 1 TAB PO SCH (08:12)
--- NOTE | 2024-10-09 08:46 | Neurology Consultation ---
Date of Consultation October 09, 2024 Assessment & Plan (1) CVA (cerebral vascular accident): History of Present Illness Attending Physician: Collin Soni History of Present Illness S: pt with more than a month of dizziness feeling and unsteady and worse last 2 weeks. mri brain noted for subacute ischemic small left thalamic stroke. pt s/p watchmen device 08/28/2024 and off eliquis. pt has been on plavix only. this morning feeling improved. still slightly unsteady at times. chart reviewed. Admission HPI: 89 yo male PMHx T2DM on insulin, diabetic neuropathy, afib s/p watchman procedure, CAD (non-occlusive), HLD, HTN, FABIÁN, BPH w/LUTS admitted with ongoing dizziness for over a month. For the last month the patient has had persistently intermittent dizziness prim arily described as room-spinning. The longest period of absence of symptoms he can recall has been a few hours. He was seen in the ER 09/05/24, had CT of the head without acute changes and was discharged on meclizine. He does not feel that the meclizine has been particularly helpful. He has also been attending PT for evaluation and treatment of presumed BPPV without improvement. Over the last few days symptoms have become more persistent and he has not been able to complete his ADLs. He has felt weaker and feels that he may have a UTI as he self caths due to LUTS with urethral stricture and incomplete bladder emptying. Overall he denies recent illness, KAY, SOB, CP, palpations, does describe some suprapubic discomfort. ED Course: CT head: no acute findings - cerebral atrophy and chronic small vessel disease; chronic sinusitis MRI brain: Acute left thalamic infarct ED physician discussed with on-call neurologist - recommend DAPT (pt already on Plavix) and increase statin to high intensity Labs reveal: no leukocytosis, mild hyponatremia, UA suggestive of possible developing UTI without bacteria seen Received Valium 2mg (significantly improved his symptoms); 1L plasmalyte Allergies Allergy/AdvReac Type Severity Reaction Status Date / Time empagliflozin AdvReac Intermediate Urinary Verified 09/28/24 09:59 [From Jardiance] problems Home Medications Medication Instructions Recorded Confirmed Type omega-3s 300 if-mjd-iip-other 1 tab PO QAM 12/17/17 09/28/24 History bolge9y-vsba oil 1,000 mg capsule ([place]-3 Fish Oil) flash glucose scanning reader #1 ea 06/28/20 09/28/24 History (FreeStyle Wyatt 2 [place]) flash glucose sensor (FreeStyle #1 ea 06/28/20 09/28/24 History Wyatt 2 Sensor kit) pmsfabojptu-pfz-nktpxkrox-vitC 1 cap PO BID 09/30/20 09/28/24 History capsule (Glucosamine Complex-MSM capsule) pen needle, diabetic 31 gauge x #400 ea 11/07/21 09/28/24 Rx 3/16" (BD Ultra-Fine Mini Pen Needle) cyanocobalamin (vitamin B-12) 1,000 mcg PO QAM 10/08/22 09/28/24 History 1,000 mcg tablet (Vitamin B-12) acetaminophen 500 mg tablet 1,000 mg PO BID 04/18/23 09/28/24 History metformin 500 mg tablet,extended 1,500 mg (3 x 500 mg) PO QPM #270 01/20/24 09/28/24 Rx release 24 hr tabs insulin glargine 100 unit/mL (3 30 unit (0.3 mL) subcut QAM #30 mL 02/24/24 09/28/24 Rx mL) subcutaneous pen (Lantus Solostar U-100 Insulin) insulin lispro 100 unit/mL 10 unit (0.1 mL) subcut TID #30 mL 02/24/24 09/28/24 Rx subcutaneous pen, sensor (Humalog Tempo Pen (U-100) Insulin) tamsulosin 0.4 mg capsule See Rx Instructions .Route 03/23/24 09/28/24 Rx .COMPLEX #90 caps lisinopril 20 1 tab PO QAM #90 tabs 06/04/24 09/28/24 Rx mg-hydrochlorothiazide 25 mg tablet atorvastatin 20 mg tablet 20 mg PO QPM #90 tabs 06/05/24 09/28/24 Rx amlodipine 5 mg-valsartan 320 mg 1 tab PO DAILY #90 tabs 06/29/24 09/28/24 Rx tablet insulin lispro 100 unit/mL 10 unit (0.1 mL) subcut TID #30 mL 06/29/24 09/28/24 Rx subcutaneous pen (Humalog KwikPen (U-100) Insulin) clopidogrel 75 mg tablet 75 mg PO DAILY #30 tabs 09/11/24 09/28/24 Rx metoprolol tartrate 50 mg tablet 25 mg (1/2 x 50 mg) PO BID #180 09/11/24 09/28/24 Rx tabs ciprofloxacin HCl 500 mg tablet 500 mg PO BID complicated UTI #10 09/28/24 09/28/24 Rx tabs meclizine 25 mg tablet 25 mg PO TID PRN dizziness #20 tabs 10/05/24 Rx Patient History Medical History Gross hematuria Gynecomastia Epiretinal membrane Urethral stricture Urinary retention Sleep apnea Benign prostate hyperplasia Surgical History Hx of bilateral cataract extraction History of shoulder replacement History of tooth extraction History of cardiac cath (~2011) Hx of urethrotomy Hx of repair of rotator cuff History of prostate biopsy Hx of eye surgery Hx of colonoscopy History of liver biopsy Hx of appendectomy Family History Mother Heart disease Brother Colorectal cancer Grandmother (Maternal) Diabetes Other Family history of diabetes mellitus Denies family history of Ovarian cancer Prostate cancer Myocardial infarction Breast cancer Lung cancer Stroke Social History Smoking Status: Never smoker Second Hand Exposure: No; Do You Dip or Chew Tobacco: No; Hx Alcohol Use: No Hx Substance Use: No Preferred Language: Malay Communication Ability: Effective Visual Impairment: Limited Hearing Ability: Normal Client Success Director Required: No Beliefs That Will Affect Care: None marital status: / Current Living Situation: Alone current occupational status: retired How many Children do You have: 3 Feels Safe at Home: Yes Safety Concerns: Feels Safe At This Time Childhood Exposure to Second-Hand Smoke: No Diet: regular caffeine: Yes Dental Care, Regularly: Yes Physical Activity Frequency: Daily Seatbelt Use: always Sunscreen Use: Yes (sometimes) Do you think of yourself as: straight/heterosexual Assistive Devices: Denture - Upper and Hearing Aid - Bilateral Review of Systems Review of Systems: All systems reviewed & are unremarkable except as noted in Subjective Constitutional: as per Subjective / HPI Eyes: as per Subjective / HPI Ear, Nose, Mouth, Throat: as per Subjective / HPI Respiratory: as per Subjective / HPI Cardiovascular: as per Subjective / HPI Gastrointestinal: as per Subjective / HPI Musculoskeletal: as per Subjective / HPI Integumentary: as per Subjective / HPI Neurologic: as per Subjective / HPI Psychiatric: as per Subjective / HPI Endocrine: as per Subjective / HPI Hematologic / Lymphatic: as per Subjective / HPI Allergy / Immunological: as per Subjective / HPI Exam (Neuro) Physical Exam: HEENT: normocephalic Neuro: Mental: AOx4, fluent speech, normal comprehension, no apraxia, no L/R confusion, no neglect CN: PERRL, Full EOM, symmetric face, midline T/U/P, 5/5 SCM/traps. Motor: No abnormal movements, normal tone and bulk, 5/5 t/o bilaterally Sens: intact to touch b/l grossly Coord: intact FNT b/l DTR: 2+ sym b/l Impression: 89 yo male with subacute left medial thalamic ischemic stroke with subjective dizziness for a month in setting of UTI. his thalamic stroke should not really cause his dizziness symptoms at this point as it is subacute in nature and location does not match his symptoms. He likely has peripheral vertigo and his UTI also contributing. Recommendations: 1. continue DAPT for at least 21 days an d f/u with cardiology to consider going back on OAC. Left ICA 50% stenosis is chronic and can consider vascular consult as outpt 4. Permissive Hypertension not needed as his stroke is subacute in nature. 6. Long-term SBP goal less than 130. avoid hypotension as pt has been hypotensive at times in the past. 9. Avoid hypoglycemia, 10. Long-term HgA1c goal less than 7. 11. Start statin if not on it and no abs olute contraindication, long-term LDL goal less than 70. continue outpt physical therapy and perhaps evaluation by ENT for chronic subjective dizziness. treat UTI not much else to offer from neurology. will sign off, call again if new question. Chart reviewed I have spent more than 50% educating patient about potential diagnosis and neurological evaluation and coordinating care with patient's treatment team. Total time spent (including chart review and coordination of care): 60 min (this includes chart review). Results & Data Vital Signs (Past 12 Hours) Vital Signs Temp Pulse Pulse Pulse Resp BP BP 10/09/24 07:42 36.7 C 65 18 10/09/24 07:23 77 10/09/24 02:47 36.7 C 59 L 18 134/70 10/09/24 02:18 66 10/08/24 23:07 36.6 C 69 16 10/08/24 21:30 62 16 133/80 10/08/24 21:21 66 22 140/80 BP Pulse Ox O2 Del Method 10/09/24 07:42 135/53 L 95 Room Air 10/09/24 07:23 10/09/24 02:47 96 Room Air 10/09/24 02:18 10/08/24 23:07 161/74 H 96 Room Air 10/08/24 21:30 96 10/08/24 21:21 96 PG Care Time/CCT Total # of Minutes Spent Total Time Spent with Patient: Total time spent is greater than 50% in coordination of care (as documented) at patient's floor/unit and/or counseling patient: Coding Level of Care Code 53049 IN/OBS CONSULT LVL 4,60M Diagnoses Cerebrovascular accident (CVA), unspecified mechanism I63.9 CVA mechanism: unspecified (1) CVA (cerebral vascular accident) CVA mechanism: unspecified Qualified Code(s): I63.9 - Cerebral infarction, unspecified
[2024-10-09] MEDS: LANTUS PER UNIT CHARGE SQ SCH (09:11)
[2024-10-09] MEDS: INSULIN ASPART PER UNIT CHARGE SC SCH (09:18)
[2024-10-09 11:07] VITALS: TEMP 98.3
[2024-10-09] MEDS: MECLIZINE HCL 25 MG TAB PO PRN (11:53)
--- NOTE | 2024-10-09 15:30 | Discharge Summary ---
Discharge Summary Date of Service October 09, 2024 Principal Dx & Hospital Course #1 = Principal Diagnosis (1) Carotid artery stenosis: Plan #Vertigo - in the setting of acute left thalamic lacunar infarct suspect secondary to above Per neurology recommendation: Neuro does not believe this is causing his symptoms and this is likely more peripheral. Continue ASA 81mg daily, continue Plavix, increase atorvastatin to 80mg daily Patient feels comfortable going home with outpatient Physical therapy. If symptoms remain, patient may benefit from ENT. Imaging showed RIght Internal carotid artery stenosis, and patient may benefit from a vascular outpatient followup. #BPH w/LUTS, ?UTI Pt does urinate but has PVR and self caths up to 3x daily Has some suprapubic tenderness Treated with rocephin, will transition to cefpodoxime to complete course. Had discussion informally with Urology, recommended treatment as patient does not normally complain of urinary symptoms. Continue Flomax #HLD Increase atorvastatin to 80mg daily as above #HTN Unclear what medication pt is taking - please clarify Will hold lisinopril/hctz as patient's BP had been controlled and somewhat on lower side. May resume in outpatient #Afib s/p watchman procedure Rates well controlled Continue metoprolol #T2DM resume home meds Admission HPI Per Admitting Provider 89 yo male PMHx T2DM on insulin, diabetic neuropathy, afib s/p watchman procedure, CAD (non-occlusive), HLD, HTN, FABIÁN, BPH w/LUTS admitted with ongoing dizziness for over a month. For the last month the patient has had persistently intermittent dizziness primarily described as room-spinning. The longest period of absence of symptoms he can recall has been a few hours. He was seen in the ER 09/05/24, had CT of the head without acute changes and was discharged on meclizine. He does not feel that the meclizine has been particularly helpful. He has also been attending PT for evaluation and treatment of presumed BPPV without improvement. Over the last few days symptoms have become more persistent and he has not been able to complete his ADLs. He has felt weaker and feels that he may have a UTI as he self caths due to LUTS with urethral stricture and incomplete bladder emptying. Overall he denies recent illness, KAY, SOB, CP, palpations, does describe some suprapubic discomfort. ED Course: CT head: no acute findings - cerebral atrophy and chronic small vessel disease; chronic sinusitis MRI brain: Acute left thalamic infarct ED physician discussed with on-call neurologist - recommend DAPT (pt already on Plavix) and increase statin to high intensity Labs reveal: no leukocytosis, mild hyponatremia, UA suggestive of possible developing UTI without bacteria seen Received Valium 2mg (significantly improved his symptoms); 1L plasmalyte Discharge Exam Constitutional WD/WN, vitals as above Neck trachea midline, no thyromegaly Respiratory normal respiratory effort, lungs clear to auscultation Cardiovascular RRR, no murmur, no edema Discharge Plan Discharge Items Patient Disposition: Home - Self-Care Reason For Visit: VERTIGO, THALAMIC STROKE Discharge Diagnosis: Thalamic stroke Condition on Discharge: Serious Activity: Resume your previous activity Non-emergency contact: Primary Care Provider Call non-emergency contact if: you have any medication questions Follow-up/Referrals: Suly Mays CRNP [Primary Care Provider] - 10/13/24 10:30 am Diet: Carb Consistent or DM2 and Heart Healthy Addtl Attending Provider Instructions: Recommend followup with Eye doctor, and PCP in 1-2 weeks Will recommend physical therapy to improve balance. may consider ENT consult if balance problems continue does not improve. May benefit from seeing Urology sooner to discuss recurrent infections vs possible colonizarion Please use wheeled walker when ambulating. Continue Aspirin and plavix May consider vascular surgery consult regarding the right Internal Carotid artery stenosis. Risk Factors for Stroke: You can reduce your chances of stroke by working with your medical provider to adopt a healthy lifestyle. Some specific ways to lower your chance of stroke are: * If you are a smoker, now is the time to stop smoking cigarettes * If you are diabetic, improve the control of your blood sugars * Avoid excessive amounts of alcohol * Control high blood pressure * Lose weight if you are overweight * Be sure to lead an active lifestyle * Eat a healthy diet low in salt, cholesterol and fat You should know about other risk factors for stroke that you are unable to control. These include: * Age 55 years or older * Male gender * Certain racial groups: , or / * Family History of Stroke, Mini stroke or Heart Attack * Sickle Cell Disease Follow Up: It is important for you to keep your follow up appointments with your medical provider. Who to Call and When: Medical Emergencies: Call 911 immediately if you experience any of the following warning signs and symptoms of Stroke: * Sudden numbness or weakness of the face, arm or leg, especially on one side of the body * Sudden confusion, trouble speaking or understanding * Sudden trouble seeing in one or both eyes * Sudden trouble walking, dizziness, loss of balance or coordination * Sudden severe headache with no cause Do not delay calling 911 if you experience any warning signs or symptoms of a stroke. Delay in seeking medical attention may affect what treatments can be given to you. . Pending Studies at Discharge: No Stand-Alone Forms: [facility], Smoking Cessation Medications and DC Order Prescriptions: New atorvastatin 40 mg Tablet 80 mg PO QAM Qty: 60 0RF aspirin 81 mg Tablet,Delayed Release (Dr/Ec) 81 mg PO QAM Qty: 30 0RF cefpodoxime 200 mg tablet 200 mg PO BID Qty: 20 0RF Rx Instructions: must administer with a meal/food Continued (DME) pen needle, diabetic [BD Ultra-Fine Mini Pen Needle] 31 gauge x 3/16" needle See Rx Instructions .ROUTE .MEDSUPPLY Qty: 400 3RF Rx Instructions: Inject insulin four times daily metformin 500 mg tablet extended release 24 hr 1,500 mg PO QPM Qty: 270 3RF tamsulosin 0.4 mg capsule See Rx Instructions .ROUTE .COMPLEX Qty: 90 3RF Dose Instruction: TAKE 1 CAPSULE BY MOUTH DAILY IN THE MORNING Rx Instructions: TAKE 1 CAPSULE BY MOUTH DAILY IN THE MORNING (DME) FreeStyle [place] 2 Sensor Kit See Rx Instructions .ROUTE .MEDSUPPLY Qty: 1 Rx Instructions: Sample was given to pt 06/28/2020 Lot #: [id number] Expiration date: 07/18/2020 (DME) FreeStyle [place] 2 [place] Misc See Rx Instructions .ROUTE .MEDSUPPLY Qty: 1 Rx Instructions: Sample was given to pt 06/28/2020 insulin lispro [Humalog KwikPen Insulin] 100 unit/mL insulin pen 10 unit subcut TID Qty: 30 3RF Rx Instructions: Inject prior to meals. insulin glargine [Lantus Solostar U-100 Insulin] 100 unit/mL (3 mL) insulin pen 30 unit subcut QAM Qty: 30 6RF Rx Instructions: Inject 30 units once a day. Humalog Tempo Pen(U-100)Insuln 100 unit/mL insulin pen, sensor 10 unit subcut TID Qty: 30 5RF Rx Instructions: Inject 10 units prior to meals. clopidogrel 75 mg tablet 75 mg PO DAILY Qty: 30 2RF metoprolol tartrate 50 mg tablet 25 mg PO BID Qty: 180 3RF [place]-3 Fish Oil 300-1,000 mg Capsule 1 tab PO QAM Glucosamine Complex-MSM Capsule 1 cap PO BID cyanocobalamin (vitamin B-12) [Vitamin B-12] 1,000 mcg tablet 1,000 mcg PO QAM acetaminophen 500 mg Tablet 1,000 mg PO BID Held lisinopril-hydrochlorothiazide 20-25 mg tablet 1 tab PO QAM Qty: 90 3RF Hold Instructions: Home Medication placed on hold at Doctor's office Discontinued atorvastatin 20 mg tablet 20 mg PO QPM Qty: 90 3RF ciprofloxacin HCl 500 mg tablet 500 mg PO BID Qty: 10 0RF No Action meclizine 25 mg tablet 25 mg PO TID PRN (Reason: dizziness) Qty: 30 3RF Discharge Orders: Discharge Order (Routine); Ordered 10/09/24 Ordered By: Collin Trinh/Other Patient Handouts: Managing Type 2 Diabetes Admission Data Admit Date/Time: 10/08/24 22:05 Attending Provider: Collin Soni Admit Provider: Horacio Kay Primary Care Provider: Suly Mays Other Providers: Andrew Melara Other Interventions: Discharge Summary Assessment (RN) Last Done: 10/09/24 15:48 Hospital Stay Data Consultations 10/08/24 20:15 ED Decision to Admit Stat 10/08/24 23:07 Consult Neurology Routine Diagnostic Imagining Performed 10/08/24 16:17 CT head/brain wo con Stat 10/08/24 18:12 MRI Brain [MR brain wo/w con] Stat Pending Results Patient Have Any Pending Studies at Discharge: No Discharge Instructions Given to Patient (Per Discharging Provider) Recommend followup with Eye doctor, and PCP in 1-2 weeks Will recommend physical therapy to improve balance. may consider ENT consult if balance problems continue does not improve. May benefit from seeing Urology sooner to discuss recurrent infections vs possible colonizarion Please use wheeled walker when ambulating. Continue Aspirin and plavix May consider vascular surgery consult regarding the right Internal Carotid artery stenosis. Risk Factors for Stroke: You can reduce your chances of stroke by working with your medical provider to adopt a healthy lifestyle. Some specific ways to lower your chance of stroke are: * If you are a smoker, now is the time to stop smoking cigarettes * If you are diabetic, improve the control of your blood sugars * Avoid excessive amounts of alcohol * Control high blood pressure * Lose weight if you are overweight * Be sure to lead an active lifestyle * Eat a healthy diet low in salt, cholesterol and fat You should know about other risk factors for stroke that you are unable to control. These include: * Age 55 years or older * Male gender * Certain racial groups: , or / * Family History of Stroke, Mini stroke or Heart Attack * Sickle Cell Disease Follow Up: It is important for you to keep your follow up appointments with your medical provider. Who to Call and When: Medical Emergencies: Call 911 immediately if you experience any of the f ollowing warning signs and symptoms of Stroke: * Sudden numbness or weakness of the face, arm or leg, especially on one side of the body * Sudden confusion, trouble speaking or understanding * Sudden trouble seeing in one or both eyes * Sudden trouble walking, dizziness, loss of balance or coordination * Sudden severe headache with no cause Do not delay calling 911 if you experience any warning signs or symptoms of a stroke. Delay in seeking medical attention may affect what treatments can be given to you. . Total Time Total Time Spent Total Time Spent (In Minutes): 32 Coding Level of Care Code 22599 INP/OBS DISCH >30 MIN Diagnoses Carotid artery stenosis I65.29
[2024-10-09 15:50] VITALS: BP 135/53; PULSE 69
[2024-10-09] MEDS ORDERED: cefTRIAXone SODIUM 2,000 MG/50 ML BAG IV SCH (22:00)
--- NOTE | 2024-10-09 22:11 | Electrocardiogram Report ---
Test Reason : Blood Pressure : */* mmHG Vent. Rate : 55 BPM Atrial Rate : 55 BPM P-R Int : 188 ms QRS Dur : 94 ms QT Int : 424 ms P-R-T Axes : -2 -13 17 degrees QTcB Int : 405 ms Sinus bradycardia with sinus arrhythmia Increased R/S ratio in V1, consider early transition or posterior infarct Abnormal ECG When compared with ECG of 05-Sep-2024 16:27, Premature atrial complexes are no longer Present Confirmed by Oliverio Allen ([id number]) on 10/09/2024 10:11:30 PM Referred By: Confirmed By: Oliverio Allen
== END 2024-10-09 17:08 | disposition home or self-care (01) | DRG 65 ==
LOC: ED 15:33 → SUATTDRO 22:05 → 2N 22:05